=== PATIENT | female | born 1995 | race Caucasian/White ===

== ENCOUNTER → 2019-10-07 13:01 | Outpatient (BNVA) | payer SELFPAY | PROVIDERS: Family Provider Family Medicine; PCP Pediatrics Adolescent Medicine; Visit Provider Obstetrics & Gynecology | DX: R87.611 Atypical squamous cells cannot exclude high grade squamous intraepithelial lesion on cytologic smear of cervix (ASC-H) (principal) | CPT/HCPCS: 81025 ==

== ENCOUNTER → 2019-10-08 09:56 | Outpatient (BNVA) | payer SELFPAY | PROVIDERS: Family Provider Family Medicine; PCP Pediatrics Adolescent Medicine; Visit Provider Obstetrics & Gynecology | DX: R87.610 Atypical squamous cells of undetermined significance on cytologic smear of cervix (ASC-US) (principal) | CPT/HCPCS: 88305 ==

== ENCOUNTER 2021-04-21 21:57 | Emergency (ER) | payer MEDICAID, SELFPAY ==
--- NOTE | 2021-04-21 22:00 | USR_ITS ---
PROCEDURE INFORMATION: Exam: US , Limited Exam date and time: 04/21/2021 10:00 PM Age: 26 years old Clinical indication: complicated by abdominal or pelvic pain; Lower; Second trimester (14 weeks 0 days to 27 weeks 6 days); Gestational age or lmp: 19 w 4 da y; ; Additional info: Eval iup TECHNIQUE: Imaging protocol: Real-time ultrasound of the maternal uterus with image documentation. Exam focused on the clinical indication. COMPARISON: [facility] OB Follow up 07/11/2017 9:00 AM FINDINGS: Gestation: Intrauterine gestation. heart rate: heart beat 147 bpm. Placenta: Posterior placenta with no obvious placenta previa. Amniotic fluid index: 9.72 cm amniotic fluid index. BIOMETRY: Estimated due date (AUA): JORDAN by ultrasound September 12, 2021. Gestational age (AUA): Single viable intrauterine with EGA 19 weeks 3 days. Femur length (FL): 3.03 cm femur length with EGA 19 weeks 3 days. MATERNAL: Uterus: Anterior uterine Dewitt Renee contraction. US/US OB limited [id number] IMPRESSION: 1. Single viable intrauterine with EGA 19 weeks 3 days. 2. JORDAN by ultrasound September 12, 2021. 3. 9.72 cm amniotic fluid index. 4. Anterior uterine Dewitt Renee contraction. 5. Posterior placenta with no obvious placenta previa.
[2021-04-21 22:06] VITALS: BP 136/84; PULSE 104; RESP 16; TEMP 36.7; O2SAT 100
[2021-04-21 23:45] LABS: Basophils % 0.2 %; Eosinophils # 0.1 10^3/uL (0.0-0.8); Hematocrit 33.4 % (37.0-47.0); Hemoglobin 11.6 g/dL (11.5-15.3); Lymphocytes # 2.2 10^3/uL (0.8-4.8); Lymphocytes % 16.4 %; Mean Corpuscular HGB Conc 34.7 g/dL (30.0-36.0); Mean Corpuscular Hemoglobin 32.1 pg (28.0-34.0); Mean Corpuscular Volume 92.5 fl (81-99); Monocytes # 0.9 10^3/uL (0.2-0.9); Monocytes % 6.8 %; Neutrophils # 10.11 10^3/uL (1.8-7.7); Neutrophils % 74.9 %; Nucleated Red Blood Cells % 0 %; Platelet Count 352 10^3/cmm (130-400); Red Blood Count 3.61 10^6/uL (4.1-5.3); Red Cell Distribution Width 13.9 % (12.1-15.1); White Blood Count 13.5 10^3/uL (4.0-10.0)
[2021-04-22 00:24] LABS: Alanine Aminotransferase 8 U/L (0-33); Albumin Level 3.8 g/dL (3.5-5.2); Alkaline Phosphatase 78 IU/L (35-105); Anion Gap 16.6 (5-19); Aspartate Amino Transferase 11 U/L (0-32); Blood Urea Nitrogen 4 mg/dL (6-20); Calcium 9.4 mg/dL (8.5-10.5); Carbon Dioxide 22 mmol/L (22-29); Chloride 101 mmol/L (98-107); Globulin 2.5 g/dL (1.3-4.6); Glomerular Filtration Rate 192.9 mL/min (90-130); Glucose 69 mg/dL (65-115); Lipase 14 U/L (13-60); Osmolality Calculated 277 mOsm/kg (285-295); Potassium 3.6 mmol/L (3.5-5.1); Sodium 136 mmol/L (136-145); Total Bilirubin 0.3 mg/dL (0.15-1.2); Total Protein 6.3 g/dL (6.6-8.7)
[2021-04-22 00:32] LABS: Creatinine Clr Calc Pharmacy 184.5312
== END 2021-04-22 01:25 | disposition left against medical advice (07) ==
PROVIDERS: Emergency Medicine; Emergency Provider Family Medicine
DX: Z53.21 Procedure and treatment not carried out due to patient leaving prior to being seen by health care provider (principal)
CPT/HCPCS: 76815; 80053; 83690; 84702; 85025; 99282